=== PATIENT | female | born 1975 | race Caucasian/White ===

== ENCOUNTER → 2021-02-06 | Outpatient (CLI) | payer MEDICAID, BC ==
--- NOTE | 2021-02-09 10:28 | MM ---
Reason for exam: screening (asymptomatic). Baseline mammogram. History: Patient has history of bilateral breast cancer. Family history of breast cancer in paternal cousin. Physical Findings: Nurse did not find any significant physical abnormalities on exam. MG 3D Screening Mammo W/Cad Bilateral CC and MLO view(s) were taken. The breast tissue is heterogeneously dense. This may lower the sensitivity of mammography. Nodularity upper outer right breast zone C. ASSESSMENT: Incomplete: need additional imaging evaluation, BI-RAD 0 RECOMMENDATION: Special view mammogram and ultrasound of the right breast. [facility] will attempt to contact patient to return for supplemental views and ultrasound.
== END | disposition home or self-care (01) ==
LOC: RADMAMWWP 09:36
PROVIDERS: ATTEND Family Medicine
DX: Z12.31 Encounter for screening mammogram for malignant neoplasm of breast (principal)
CPT/HCPCS: 77063; 77067

== ENCOUNTER → 2021-02-20 | Outpatient (CLI) | payer MEDICAID, BC ==
--- NOTE | 2021-02-23 08:45 | MM ---
Reason for exam: additional evaluation requested from abnormal screening. Last mammogram was performed less than 1 month ago. History: Patient has history of bilateral breast cancer. Family history of breast cancer in paternal cousin. Took hormonal contraceptives for 3 years beginning at age 18. Physical Findings: Nurse Summary: 0.5cm nodule in the right breast at 9 o'clock (nurse ms). MG 3D Work Up W/Cad RT Spot compression CC, spot compression MLO, and ML view(s) were taken of the right breast. Prior study comparison: February 06, 2021, bilateral MG 3d screening mammo w/cad. The breast tissue is heterogeneously dense. This may lower the sensitivity of mammography. Focal asymmetry right 12 o'clock. These results were verbally communicated with the patient and result sheet given to the patient on 02/20/21. ASSESSMENT: Incomplete: need additional imaging evaluation, BI-RAD 0 RECOMMENDATION: Ultrasound of the right breast. (palpable and 12 o'clock)
--- NOTE | 2021-02-23 08:47 | USB ---
Reason for exam: additional evaluation requested from abnormal screening. History: Patient has history of bilateral breast cancer. Family history of breast cancer in paternal cousin. Took hormonal contraceptives for 3 years beginning at age 18. US Breast Workup Limited RT Right limited breast ultrasound including focal area of concern, retroareolar and axilla demonstrates a 0.4 x 0.4 x 0.2cm oval, complex, cystic lesion at 9 o'clock, a 0.4 x 0.5 x 0.2cm oval, cystic lesion at 9 o'clock and a 1.1 x 0.8 x 0.3cm oval, cystic lesion at 11:30. These results were verbally communicated with the patient and result sheet given to the patient on 02/20/21. ASSESSMENT: Probably benign, BI-RAD 3 RECOMMENDATION: Ultrasound of the right breast in 6 months.
== END | disposition home or self-care (01) ==
LOC: RADMAMWWP 13:30
PROVIDERS: ATTEND Family Medicine
DX: N64.89 Other specified disorders of breast (principal); Z85.3 Personal history of malignant neoplasm of breast; Z80.3 Family history of malignant neoplasm of breast
CPT/HCPCS: 77061; 77065

== ENCOUNTER → 2021-10-09 | Outpatient (CLI) | payer MEDICAID, BC ==
--- NOTE | 2021-10-09 10:29 | USB ---
Reason for Exam: Follow-up at short interval from prior study. Patient History: Menarche at age 13. First Full-Term at age 22. Breast cancer. Hormonal Contraceptives for 3 years from age 18 until age 21. Paternal cousin had breast cancer. Technique: Method: Targeted. Prior Study Comparison: 02/06/2021 Bilateral Screening Mammogram, [facility]. 02/20/2021 Right Diagnostic Mammogram, [facility]. Findings: The upper outer quadrant of the right breast, the axilla of the right breast and the retroareolar of the right breast were scanned. Finding 1: Simple cyst. Laterality: Right. Size 9 x 4 x 9 mm. 11 O'clock Quadrant: Upper outer. Depth: Posterior. 3 cm cm from nipple. Shape: Round or Oval. Margin: Circumscribed (Well-Defined or Sharply-Defined). 9 X 4 X 9 CM OVAL anechoic area appears unchanged from prior. Overall Assessment: Probably benign, BI-RAD 3 Management: Diagnostic Breast Ultrasound of the right breast in 4 months. Diagnostic Mammogram of both breasts in 4 months. A clinical breast exam by your physician is recommended on an annual basis and results should be correlated with mammographic findings. Electronically signed and approved by: Roberto Vargas M.D. Radiologis
== END | disposition home or self-care (01) ==
LOC: RADUSWWP 09:24
PROVIDERS: ATTEND Family Medicine
DX: R92.8 Other abnormal and inconclusive findings on diagnostic imaging of breast (principal); N60.01 Solitary cyst of right breast; Z80.3 Family history of malignant neoplasm of breast

== ENCOUNTER → 2023-01-26 | Outpatient (CLI) | payer BC ==
--- NOTE | 2023-01-26 13:14 | MM ---
Reason for Exam: Follow-up at short interval from prior study. Last mammogram was performed 2 year(s) and 0 month(s) ago. Patient History: Menarche at age 13. First Full-Term at age 22. Premenopausal. Hormonal Contraceptives for 3 years from age 18 until age 21. Paternal cousin had breast cancer. Risk Values: Tianna 5 year model risk: 0.7%. NCI Lifetime model risk: 7.6%. Prior Study Comparison: 02/06/2021 Bilateral Screening Mammogram, [facility]. 02/20/2021 Right Diagnostic Mammogram, [facility]. 02/20/2021 Right Diagnostic Ultrasound, [facility]. 10/09/2021 Right US breast limited RT, [facility]. Tissue Density: The breast tissue is heterogeneously dense. This may lower the sensitivity of mammography. Findings: Analyzed By CAD. Stable chronic nodularity from prior exam in 2020. No new suspicious nodules are worrisome group of calcifications within either breast. No architectural distortion. Stable chronic nodularity within both breasts from prior exam in 2020. No new suspicious nodules are worrisome group of calcifications within either breast. No architectural distortion. Overall Assessment: Benign, BI-RAD 2 Management: Screening Mammogram of both breasts in 1 year. A clinical breast exam by your physician is recommended on an annual basis and results should be correlated with mammographic findings. This exam should not preclude additional follow-up of suspicious palpable abnormalities. Results were given to the patient verbally at the time of exam. Note on Tianna scores and lifetime risk: 1. A Tianna score greater than 3% is considered moderate risk. If this is the case, consider specialist referral to assess eligibility for a risk reducing agent. If overall lifetime risk for the development of breast cancer is 20% or higher, the patient may qualify for future screening with alternating mammogram and breast MRI. Electronically signed and approved by: Memo Go D.O.
== END | disposition home or self-care (01) ==
LOC: RADMAMWWP 12:46
PROVIDERS: ATTEND Family Medicine
DX: R92.8 Other abnormal and inconclusive findings on diagnostic imaging of breast (principal); Z80.3 Family history of malignant neoplasm of breast
CPT/HCPCS: 77062; 77066

== ENCOUNTER → 2024-03-16 | Outpatient (CLI) | payer BC ==
--- NOTE | 2024-03-19 18:03 | MM ---
Reason for Exam: Screening (asymptomatic). Last mammogram was performed 1 year(s) and 1 month(s) ago. Patient History: Menarche at age 13. First Full-Term at age 22. Premenopausal. Hormonal Contraceptives for 3 years from age 18 until age 21. Paternal cousin had breast cancer. Risk Values: Tinana 5 year model risk: 0.8%. NCI Lifetime model risk: 7.5%. Prior Study Comparison: 02/06/2021 Bilateral Screening Mammogram, [facility]. 02/20/2021 Right Diagnostic Mammogram, [facility]. 01/26/2023 Bilateral MG 3D diag mammo w/cad [facility], [facility]. Tissue Density: The breasts are heterogeneously dense, which may obscure small masses. Findings: Analyzed By CAD. Areas of asymmetric density right MLO view appear unchanged when comparing against the 2020 exam. There is no suspicious group of microcalcifications or new suspicious mass in either breast. Overall Assessment: Benign, BI-RAD 2 Management: Screening Mammogram of both breasts in 1 year. . Patient should continue monthly self-breast exams. A clinical breast exam by your physician is recommended on an annual basis. This exam should not preclude additional follow-up of suspicious palpable abnormalities. Note on Tianna scores and lifetime risk: 1. A Tianna score greater than 3% is considered moderate risk. If this is the case, consider specialist referral to assess eligibility for a risk reducing agent. 2. If overall lifetime risk for the development of breast cancer is 20% or higher, the patient may qualify for future screening with alternating mammogram and breast MRI. [facility], , 03/19/2024 6:00 PM. Electronically signed and approved by: Trev Lucas M.D. Radiologist
== END | disposition home or self-care (01) ==
LOC: RADMAMWWP 11:14
PROVIDERS: ATTEND Family Medicine
DX: Z12.31 Encounter for screening mammogram for malignant neoplasm of breast (principal); Z80.3 Family history of malignant neoplasm of breast; R92.333 Mammographic heterogeneous density, bilateral breasts
CPT/HCPCS: 77063; 77067